=== PATIENT | male | born 1975 | race African-American/Black ===

== ENCOUNTER 2016-07-11 15:45 | Emergency (ER) | payer MEDICAID ==
--- NOTE | 2016-07-11 16:37 | ER Document Report ---
ED Psych Disorder / Suicide - General Chief Complaint: ETOH Abuse Stated Complaint: POSSIBLE ETOH Notes: Patient was brought in by local police, having [place]. He was given a choice of being arrested and going to half-way or coming to the emergency room for evaluation, and, of course, he chose the latter. Patient has no complaints. Patient says that he was just "having some fun" yesterday and last evening and acknowledges drinking alcohol then, but not today. Says he stopped about 6 AM. Denies taking any illicit drugs or other drugs. His speech is slurred and difficult to understand and he appears to be intoxicated when he stands and walks. Patient denies any headache. Denies any pains anywhere. - Related Data Allergies/Adverse Reactions: No Known Allergies Allergy (Unverified 07/11/16 16:19) Past Medical History - Social History Smoking Status: Current Every Day Smoker Chew tobacco use (# tins/day): No Frequency of alcohol use: Heavy Drug Abuse: None Family History: Reviewed & Not Pertinent Psychiatric Medical History: Reports: Hx Schizophrenia - Says he's taking medications for this condition. Review of Systems - Review of Systems Notes: Patient is too much under the influence of either drugs and/or alcohol to answer questions reliably. Physical Exam - Vital signs Vitals: Temp Pulse Resp BP Pulse Ox 97.7 F 93 20 124/79 99 07/11/16 16:00 07/11/16 16:00 07/11/16 16:00 07/11/16 16:00 07/11/16 16:00 Interpretation: Normal - Notes Notes: PHYSICAL EXAMINATION: GENERAL: Well-appearing, in no acute distress. Vital signs are normal. HEAD: Atraumatic, normocephalic. EYES: Pupils equal round and reactive to light, extraocular movements intact. ENT: oropharynx clear without exudates. Moist mucous membranes. NECK: Normal range of motion, supple. LUNGS: Breath sounds clear and equal bilaterally. HEART: Regular rate and rhythm without murmurs. ABDOMEN: Soft, nontender. No guarding or rebound. BACK: No tenderness throughout entire back. EXTREMITIES: Normal range of motion without pain. NEUROLOGICAL: Speech is slurred. Normal sensory, motor, and reflex exams. Awake, alert. Patient appears to be and acts as if he is under the influence of drugs and/or alcohol. Can walk but is very wobbly on his feet. SKIN: Warm, dry, no rashes. Course - Re-evaluation Re-evalutation: 07/11/16 20:02 Patient was consulted by our mental health providers, but he was too intoxicated to answer questions intelligibly. His blood alcohol is 297. I'm not going to do a IVC on this patient, but we will let him stay here in a bed overnight until morning and he can be reassessed for formal discharge or other disposition. - Vital Signs Vital signs: Temp Pulse Resp BP Pulse Ox 98.6 F 97 20 142/90 H 97 07/12/16 04:00 07/12/16 04:00 07/12/16 04:00 07/12/16 04:00 07/12/16 04:00 - Laboratory Result Diagrams: 07/11/16 17:50 07/11/16 17:50 Laboratory results interpreted by me: 07/11/16 07/11/16 07/11/16 16:00 17:50 17:50 RBC 5.77 H MCV 77 L MCH 25.3 L RDW 15.5 H Sodium 148.0 H AST 92 H Total Protein 8.4 H Urine Blood SMALL H Salicylates < 1.0 L Acetaminophen < 10 L Discharge - Discharge Clinical Impression: Schizophrenia Alcohol intoxication Qualifiers: Complication of substance-induced condition: uncomplicated Qualified Code(s): F10.120 - Alcohol abuse with intoxication, uncomplicated
[2016-07-11 16:49] LABS: APPEARANCE,URINE CLEAR; BILIRUBIN,URINE NEGATIVE (NEGATIVE); GLUCOSE, URINE NEGATIVE (NEGATIVE); KETONES,URINE NEGATIVE (NEGATIVE); LEUKOCYTE ESTERASE,URINE NEGATIVE (NEGATIVE); NITRITE,URINE NEGATIVE (NEGATIVE); PROTEIN,URINE NEGATIVE (NEGATIVE); URINE SPECIFIC GRAVITY 1.003; UROBILINOGEN,URINE NEGATIVE mg/dL (<2.0)
--- NOTE | 2016-07-11 17:03 | PSYCHOLOGICAL NOTE ---
Psych Note - Psych Note Psych Note: Pt in via EMS. EMS states that they found this pt behind the mall sleeping and intoxicated. States that he was given the choice to come in or be arrested. Pt is compliant with this nurse with NAD noted at this time. AAOX3. Patient is unable to participate in evaluation. Patient is presenting in an altered mental state. When asked what the patient took he states "prescription every Friday." Patient states it is Friday and that he got out of prison "a couple of days ago." Patient states he need to call his medical officer "Ayush." Patient will be re-evaluated.
[2016-07-11 17:05] LABS: URINE BARBITURATES SCREEN NEGATIVE; URINE METHADONE SCREEN NEGATIVE; URINE OPIATES LOW NEGATIVE; URINE PHENCYCLIDINE SCREEN NEGATIVE
[2016-07-11 18:07] LABS: ABSOLUTE EOSINOPHILS # (AUTO) 0.1 10^3/uL (0.0-0.6); ABSOLUTE LYMPHOCYTES (AUTO) 2.5 10^3/uL (0.5-4.7); ABSOLUTE MONOCYTES (AUTO) 0.5 10^3/uL (0.1-1.4); ABSOLUTE NEUT (AUTO) 3.9 10^3/uL (1.7-8.2); BASOPHILS % (AUTO) 0.4 % (0-2); EOSINOPHILS % (AUTO) 1.1 % (0-6); HEMATOCRIT 44.4 % (37.9-51.0); HEMOGLOBIN 14.6 g/dL (13.5-17.0); HGB HCT DIFFERENCE -0.6; LYMPHOCYTES % (AUTO) 35.1 % (13-45); MEAN CORPUSCULAR HEMOGLOBIN 25.3 pg (27.0-33.4); MEAN CORPUSCULAR HGB CONC 32.9 g/dL (32.0-36.0); MEAN CORPUSCULAR VOLUME 77 fl (80-97); MONOCYTES % (AUTO) 7.8 % (3-13); RED BLOOD COUNT 5.77 10^6/uL (4.35-5.55); RED CELL DISTRIBUTION WIDTH 15.5 % (11.5-14.0); SEGMENTED NEUTROPHILS % (AUTO) 55.6 % (42-78)
[2016-07-11 18:20] LABS: ALANINE AMINOTRANSFERASE 54 U/L (21-72); ALBUMIN 4.8 g/dL (3.5-5.0); ALCOHOL 297 mg/dL (NONE DETECTED); ALKALINE PHOSPHATASE 75 U/L (38-126); ANION GAP 18 (5-19); ASPARTATE AMINO TRANSFERASE 92 U/L (17-59); BILIRUBIN,DIRECT 0.3 mg/dL (0.0-0.4); BILIRUBIN,TOTAL 0.6 mg/dL (0.2-1.3); BLOOD UREA NITROGEN 10 mg/dL (7-20); CALCIUM 9.6 mg/dL (8.4-10.2); CARBON DIOXIDE 25 mmol/L (22-30); CHLORIDE 105 mmol/L (98-107); CREATININE RESULT 0.91 mg/dL (0.52-1.25); GLUCOSE 93 mg/dL (75-110); POTASSIUM 4.2 mmol/L (3.6-5.0); TOTAL PROTEIN 8.4 g/dL (6.3-8.2)
--- NOTE | 2016-07-12 09:33 | EKG REPORT ---
SEVERITY:- ABNORMAL ECG - SINUS RHYTHM PROBABLE LEFT VENTRICULAR HYPERTROPHY ST ELEV, PROBABLE NORMAL EARLY REPOL PATTERN : Confirmed by: Jay Bean 12-Jul-2016 09:32:34
--- NOTE | 2016-07-12 16:04 | PSYCHOLOGICAL NOTE ---
Psych Note - Psych Note Psych Note: Patient was brought in by local police, having been found laying on the ground back of the mall. He was given a choice of being arrested and going to custodial or coming to the emergency room for evaluation, and, of course, he chose the latter. Patient has no complaints. Patient says that he was just "having some fun" yesterday and last evening and acknowledges drinking alcohol then, but not today. Says he stopped about 6 AM. Denies taking any illicit drugs or other drugs. His speech is slurred and difficult to understand and he appears to be intoxicated when he stands and walks. Patient disclosed that he lives on [facility]. He continued to disclose that he has an ACT Team with Physician [place]. He disclosed that he was in the hospital one year ago. Patient is difficult to understand and appears to be confused at times. Patient denies any head injuries. Officer Bunny Adler, patient's sailing officer, . Left message at [phone] Received call back at 1600, Officer Nayely disclosed that he visited the patient 's home earlier today and found the front door open. He disclosed that nothing was taken, rather it looked as if he walked out and forgot to close the door. He states he will help assist the patient in checking medications when he see him. He states when the patient was a "no show" he know something was wrong because "he is not like that." Ama Hawkins, Patient's mother, Busy signal at 1000 all 4 [facility], disclosed the patient is very guarded and is noted to not make eye contact. There is concern the patient is not compliant with his medication; will fax the medication list. Patient is alert and orientated to person, place.. Mood is gadded with flat affect. Patient denies suicidal and homicidal ideation. Patient denies auditory and visual hallucinations; patient is demonstrating behaviour what would be congruent to responding to internal stimuli (having difficulties keeping track of conversation, answers incorrectly then says "wait, what..." No delusions are noted. Thought process is disorganized. Eye contact was was never made even after requested. Intellectual abilities appear to be within low average range. Attention and concentration is poor. Insight, judgment, and impulse control is poor. 295.90 (F20.9) Schizophrenia per history Impression/plan: Patient is recommended to continue on mental health hold. Patient is presenting with disorganized thought process and in behaviors that are congruent with responding to internal stimuli. Patient states he last took his medication on Friday. Patient currently has poor attention concentration insight judgment and impulse control. Patient will be reevaluated. Patient will be restarted on home medication of Zyprexa [address] Pink was consulted on the care and management of this patient; attending physician is in agreement with recommendations and disposition.
[2016-07-12] MEDS ORDERED: OLANZAPINE 5 MG TABLET PO ONE (16:15)
[2016-07-12] MEDS ORDERED: OLANZAPINE 5 MG TABLET PO SCH (22:00)
--- NOTE | 2016-07-13 09:16 | ER Document Report ---
Doctor's Note Notes: 07/13/16 09:16 As the rounding physician for our psychiatric patients, I have reviewed the chart, vitals, lab work. Patient has been examined and noted to be stable and in no distress . I agree with mental health for discharge at this time After performing a Medical Screening Examination, I estimate there is LOW risk for any life threatening mental health issues. At this time the patient looks extremely well and has not attempted severe self harm. I have reevaluated this patient multiple times and no significant life threatening changes are noted. The patient and I have discussed the diagnosis and risks, and we agree with discharging home with close follow-up with the understanding that symptoms and presentations can change. We also discussed returning to the Emergency Department immediately if new or worsening symptoms occur. We have discussed the symptoms which are most concerning (hallucinations, thoughts or actions of self harm or harm to others) that necessitate immediate return. 07/13/16 11:14
--- NOTE | 2016-07-13 10:31 | ER Document Report ---
ED Psych Disorder / Suicide - General TRAVEL OUTSIDE OF THE [place] IN LAST 30 DAYS: No - HPI Normal mood: Yes - patient is at their baseline Associated symptoms: Normal affect, Normal mood, Other - guarded <LYDIA GILL - Last Filed: 07/13/16 10:14> <SANTO GONZALEZ - Last Filed: 07/13/16 11:01> - General Chief Complaint: ETOH Abuse Stated Complaint: POSSIBLE ETOH - HPI Notes: yamilet was brought in by local police, having been found laying [place] the [place] the mall. He was given a choice of being arrested and going to correction or coming to the emergency room for evaluation, and, of course, he chose the latter. Patient has no complaints. Patient says that he was just "having some fun" yesterday and last evening and acknowledges drinking alcohol then, but not today. Says he stopped about 6 AM. Denies taking any illicit drugs or other drugs. His speech is slurred and difficult to understand and he appears to be intoxicated when he stands and walks. Clinician conducted check in with patient. Patient is presenting more cognitively alert. Patient is responding appropriately; states he is thinking more clearly. Disclosed he has a home (this has been confirmed by both [facility], and Officer Nayely). Patient states he is ready to go home, and confirms he has his medication at home. Patient agrees he needs to take his medication daily. 295.90 (F20.9) Schizophrenia per history Impression/plan: Patient is considered psychiatrically clear for discharge. Patient does not meet IVC criteria per [place] GS 122C. Patient was off his medication since Friday and has bee restarted Zyprexa (patient's prescribed home medication). Patient is presenting at reported baseline from officer Nayely and [facility] ACT field marketing lead Keenan (no eye contact and guarded). Patient has a higher level of care in place with [facility] in addition to his bsa/aml compliance officer stating he will be checking in on the patient to ensure he is taking his medications. Patient is recommended to continue with assigned services in the community. Dr. Pink was consulted on the care and management of this patient ; attending physician is in agreement with recommendations and disposition. (LYDIA GILL) - Related Data Allergies/Adverse Reactions: No Known Allergies Allergy (Unverified 07/11/16 16:19) Past Medical History - Social History Smoking Status: Current Every Day Smoker Chew tobacco use (# tins/day): No Frequency of alcohol use: Heavy Drug Abuse: None Family History: Reviewed & Not Pertinent Psychiatric Medical History: Reports: Hx Schizophrenia - Says he's taking medications for this condition. <LYDIA GILL - Last Filed: 07/13/16 10:14> Course - Laboratory Result Diagrams: 07/11/16 17:50 07/11/16 17:50 <LYDIA GILL - Last Filed: 07/13/16 10:14> - Laboratory Result Diagrams: 07/11/16 17:50 07/11/16 17:50 <SANTO GONZALEZ - Last Filed: 07/13/16 11:01> - Vital Signs Vital signs: Temp Pulse Resp BP Pulse Ox 98.1 F 73 20 117/71 99 07/13/16 06:05 07/13/16 06:05 07/13/16 06:05 07/13/16 06:05 07/13/16 06:05 - Laboratory Laboratory results interpreted by me: 07/11/16 07/11/16 07/11/16 16:00 17:50 17:50 RBC 5.77 H MCV 77 L MCH 25.3 L RDW 15.5 H Sodium 148.0 H AST 92 H Total Protein 8.4 H Urine Blood SMALL H Salicylates < 1.0 L Acetaminophen < 10 L Discharge <LYDIA GILL - Last Filed: 07/13/16 10:14> <SANTO GONZALEZ - Last Filed: 07/13/16 11:01> - Discharge Clinical Impression: Alcohol intoxication Qualifiers: Complication of substance-induced condition: uncomplicated Qualified Code(s): F10.120 - Alcohol abuse with intoxication, uncomplicated Schizophrenia Qualifiers: Schizophrenia type: unspecified Qualified Code(s): F20.9 - Schizophrenia, unspecified Condition: Stable Disposition: HOME, SELF-CARE Additional Instructions: Acute Alcohol Intoxication Your evaluation revealed very high levels of alcohol. You can from drinking a large amount of alcohol rapidly! Further, there's the risk of falls , traffic accidents, and fights. A high portion (about 50 percent) of the serious injuries seen in hospital emergency rooms are caused by alcohol. Alcohol overdosage is usually due to an underlying emotional or psychiatric problem. You may benefit from counselling. If "binge" drinking is an ongoing problem for you, or if you drink ANY AMOUNT of alcohol EVERY day, you most likely have a tendency to alcoholism. You should avoid alcohol totally. We can refer you for treatment. Persons with alcohol problems are often also prone to other addictions -- you should discuss any use of medications or drugs with the doctor. Schizophrenia Schizophrenia is a chemical disorder that affects how the brain functions. The exact cause is unknown, but it tends to run in families. It is NOT caused by emotional trauma. Schizophrenia causes disordered thinking, including unusual beliefs and inability to "process" happenings around the patient. Patients with schizophrenia benefit greatly from medicine. These medicines are called antipsychotics. Never stop the medicine without the doctor 's approval. Counselling may help the patient deal with his disease. Schizophrenics require a very ordered environment. Stresses and sudden changes may bring out symptoms. Drugs and alcohol abuse may become problems. Contact the counsellor or crisis line if there are thoughts of suicide or of harming others, or if you become aware of unusual thoughts or beliefs Patient is recommended to continue with community services through [facility] and take medications as prescribed. It is also recommended the patient receive an alcohol abuse assessment through there provider [facility] to determine if additional services are needed. Referrals: [facility] [Provider Group] - Follow up as needed
[2016-07-13 11:55] VITALS: BP 136/82
== END 2016-07-13 11:40 | disposition home or self-care (01) ==
LOC: ER 15:45
DX: F10.120 Alcohol abuse with intoxication, uncomplicated (principal); F20.9 Schizophrenia, unspecified; F17.200 Nicotine dependence, unspecified, uncomplicated
CPT/HCPCS: 36415; 80053; 80307; 81001; 85025; 93005; 93010; 99285